=== PATIENT | female | born 1985 | race Hispanic/Latino ===

== ENCOUNTER → 2018-11-13 | Outpatient (CLI) | payer MEDICAID, OTHER ==
--- NOTE | 2018-11-13 13:24 | US ---
EXAM DESCRIPTION: Liver ultrasound exam CLINICAL HISTORY: ELEVATED LFTs COMPARISON: None Available. TECHNIQUE: Right upper quadrant ultrasound was performed. FINDINGS: Pancreas: Obscured by overlying air in the stomach and other bowel gas. Aorta/inferior vena cava: No aortic aneurysm. Normal inferior vena cava. Liver: The liver is homogeneous in texture with increased echogenicity consistent with diffuse hepatic steatosis. No focal liver lesion or intrahepatic bile duct dilatation. No liver surface irregularity. Normal appearance of the portal vein and hepatic veins. Gallbladder: Gallbladder appears normal with no intraluminal stones or wall thickening. Common bile duct: Normal caliber measuring 3.9 mm. Right kidney: Renal length is 11.7 cm. Normal cortical echogenicity. Cortical thickness is normal. No hydronephrosis is seen. No renal mass or shadowing calculus. IMPRESSION: Hyperechoic liver consistent with diffuse hepatic steatosis. Electronically signed by: Ac Hassan MD 11/13/2018 1:22 PM CDT
== END ==
LOC: LAB.O 10:34
PROVIDERS: ATTEND Family Medicine
DX: R94.5 Abnormal results of liver function studies (principal)